=== PATIENT | female | born 1995 | race Two or more races ===

== ENCOUNTER 2020-05-07 23:29 | Inpatient (IN) | payer MEDICAID ==
[2020-05-07] MEDS ORDERED: Lidocaine 1% 50 ML MDV ONE (23:57)
[2020-05-07] MEDS ORDERED: Naloxone 0.4 MG/ML SDV ONE (23:57)
[2020-05-07] MEDS ORDERED: Oxytocin 10 Units/1 ML SDV ONE (23:57)
[2020-05-08] MEDS ORDERED: Oxytocin 10 Units/1 ML SDV ONE (00:08)
[2020-05-08] MEDS ORDERED: Misoprostol 200 MCG Tab ONE (00:12)
[2020-05-08] MEDS ORDERED: Methylergonovine 0.2 MG/1 ML Amp ONE (00:12)
[2020-05-08] MEDS ORDERED: Carboprost Tromethamine 250 MCG/1 ML Amp ONE (00:12)
[2020-05-08] MEDS ORDERED: Sodium Chloride 0.9% 10 ML Syringe FLUSH PRN (00:25)
[2020-05-08] MEDS ORDERED: Docusate Sodium 100 MG Cap PO PRN (00:28)
[2020-05-08] MEDS ORDERED: Acetaminophen 325 MG Tab, 50 Tab Bulk Bottle PO PRN (00:28)
[2020-05-08] MEDS ORDERED: Ibuprofen 200 MG Tab, 24 Tab Bulk Bottle PO PRN (00:28)
[2020-05-08] MEDS ORDERED: Lanolin 100% Cream 40 GM Tube TOP ONE (00:28)
[2020-05-08] MEDS ORDERED: Benzocaine 20% Top Spray 56 GM Bottle TOP ONE (00:28)
[2020-05-08] MEDS ORDERED: Witch Hazel Medicated Pads 100/Jar TOP ONE (00:28)
--- NOTE | 2020-05-08 00:55 | PCM.LDHP ---
L&D History of Present Illness - General Date of Service: 05/07/20 Admit Problem/Dx: Patient Status Order with Admit Dx/Problem 05/08/20 00:25 Patient Status [ADT] Routine 05/08/20 00:31 Patient Status [ADT] Routine Admission Diagnosis/Problem Admission Diagnosis/Problem Source of Information: Patient History Limitations: Reports: No Limitations - Related Data Allergies/Adverse Reactions: Allergies Allergy/AdvReac Type Severity Reaction Status Date / Time No Known Allergies Allergy Verified 01/20/20 22:13 Home Medications: Home Meds Pnv No.95/Ferrous Fum/Folic AC [ Tablet] 1 each PO DAILY 01/20/20 [History] Past Medical History - Past Health History Medical/Surgical History: Denies 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 History: Social & Family History - Family History Family Medical History: Noncontributory H&P Review of Systems - Review of Systems: Review Of Systems: See Below General: Reports: No Symptoms HEENT: Reports: No Symptoms Pulmonary: Reports: No Symptoms Cardiovascular: Reports: No Symptoms Gastrointestinal: Reports: No Symptoms Genitourinary: Reports: No Symptoms Musculoskeletal: Reports: No Symptoms Skin: Reports: No Symptoms Psychiatric: Reports: No Symptoms Neurological: Reports: No Symptoms Hematologic/Lymphatic: Reports: No Symptoms Immunologic: Reports: No Symptoms L&D Exam - Exam Exam: See Below - OB Specific Contraction Intensity: Strong Movement: Active Heart Tones: Present Heart Rate (FHR) Variability: Moderate (6-25 bmp) Presentation: Vertex - Iqbal Score Iqbal Score Cervix Position: Anterior Iqbal Score Consistency: Soft Iqbal Score Effacement: >80% Iqbal Score Dilation: > 5 cm Iqbal Score 's Station: -1 ,0 Iqbal Score Total: 12 - Exam General: Alert, Oriented, Cooperative HEENT: PERRLA, Conjunctiva Clear, EACs Clear, EOMI, Hearing Intact, Mucosa Moist & [place], Nares Patent, Normal Nasal Septum, Posterior Pharynx Clear, TMs Clear Neck: Supple, Trachea Midline Lungs: Clear to Auscultation, Normal Respiratory Effort Cardiovascular: Regular Rate, Regular Rhythm GI/Abdominal Exam: Normal Bowel Sounds, Soft, Non-Tender, No Organomegaly, No Distention, No Abnormal Bruit, No Mass, Pelvis Stable Rectal Exam: Normal Exam, Normal Rectal Tone Genitourinary: Normal external exam, Normal bimanual exam, Normal speculum exam Back Exam: Normal Inspection, Full Range of Motion Extremities: Normal Inspection, Normal Range of Motion, Non-Tender, No Pedal Edema, Normal Capillary Refill Skin: Warm, Dry, Intact Neurological: Cranial Nerves Intact, Reflexes Equal Bilateral Psychiatric: Alert, Normal Affect, Normal Mood - Patient Data Lab Results Last 24 hrs: Laboratory Results - last 24 hr 05/08/20 Range/Units 00:25 WBC 15.5 H (4.5-11.0) K/uL RBC 4.14 (3.30-5.50) M/uL Hgb 12.0 (12.0-15.0) g/dL Hct 35.5 L (36.0-48.0) % MCV 86 (80-98) fL MCH 29 (27-31) pg MCHC 34 (32-36) % Plt Count 217 (150-400) K/uL Neut % (Auto) 81 H (36-66) % Lymph % (Auto) 11 L (24-44) % [place] % (Auto) 7 H (2-6) % Eos % (Auto) 0 L (2-4) % Baso % (Auto) 0 (0-1) % Result Diagrams: 05/08/20 00:25 - Problem List (1) SNOMED Code(s): 77224884 ICD Code: Z34.90 - ENCNTR FOR SUPRVSN OF NORMAL , UNSP, UNSP TRIMESTER Status: Acute Current Visit: Yes Qualifiers: Weeks of gestation: 39 weeks Qualified Code(s): Z3A.39 - 39 weeks gestation of (2) Labor established SNOMED Code(s): 38330643 ICD Code: QGV6819 - Status: Acute Current Visit: Yes Problem List Initiated/Reviewed/Updated: Yes Orders Last 24hrs: Active Orders 24 hr Category Date Time Status Patient Status [ADT] Routine ADT 05/08/20 00:25 Active Patient Status [ADT] Routine ADT 05/08/20 00:31 Active Ambulate [RC] PER UNIT ROUTINE Care 05/08/20 00:25 Active Communication Order [RC] ASDIRECTED Care 05/08/20 00:25 Active Heart Tones [RC] PER UNIT ROUTINE Care 05/08/20 00:25 Active Non Stress Test [RC] Click to Edit Care 05/08/20 00:25 Active May Shower [RC] ASDIRECTED Care 05/08/20 00:25 Active Notify Provider Vital Signs [RC] PRN Care 05/09/20 23:40 Active Notify Provider [RC] PRN Care 05/08/20 00:25 Active Up ad Becky [RC] ASDIRECTED Care 05/08/20 00:25 Active VTE/DVT Education [RC] Click to Edit Care 05/08/20 00:26 Active Vital Signs [RC] PER UNIT ROUTINE Care 05/08/20 00:25 Active Vital Signs [RC] PFP Care 05/08/20 00:31 Active CBC WITH AUTO DIFF [HEME] Routine Lab 05/09/20 06:00 Ordered DRUG SCREEN, URINE [URCHEM] Routine Lab 05/08/20 00:25 Ordered UA W/MICROSCOPIC [URIN] Routine Lab 05/08/20 00:25 Ordered Acetaminophen [Tylenol Bulk Bottle] Med 05/08/20 00:28 Ordered See Dose Instructions PO Q4H PRN Benzocaine [Xvkc-O-Bihzazu 20% Treichlers] Med 05/08/20 00:28 Once See Dose Instructions TOP ONETIME ONE Docusate Sodium [Colace] Med 05/08/20 00:28 Ordered 100 mg PO BID PRN Ibuprofen [Motrin Bulk Bottle] Med 05/08/20 00:28 Ordered 600 mg PO Q6H PRN Lanolin [Lansinoh HPA] Med 05/08/20 00:28 Once 1 gm TOP ONETIME ONE Vit with Ca/FA/Iron [ Plus Iron] Med 05/08/20 09:00 Ordered 1 each PO DAILY Sodium Chloride 0.9% [Saline Flush] Med 05/08/20 00:25 Ordered 10 ml FLUSH ASDIRECTED PRN witch Nikkie [Tucks] Med 05/08/20 00:28 Once 1 pad TOP ONETIME ONE Assess Lochia [WOMSER] Per Unit Routine Oth 05/08/20 00:28 Ordered Assess Uterine Involution [WOMSER] Per Unit Routine Oth 05/08/20 00:28 Ordered DVT/VTE Prophylaxis Reflex [OM.PC] Routine Oth 05/08/20 00:25 Ordered Perineal Care [OM.PC] Per Unit Routine Oth 10/23/20 00:32 Ordered Saline Lock Insert [OM.PC] Routine Oth 05/08/20 00:25 Ordered Resuscitation Status Routine Resus Stat 05/08/20 00:25 Ordered Medication Orders Acetaminophen (Tylenol Bulk Bottle) 0 mg PO Q4H PRN PRN Reason: Pain Benzocaine (Usgd-P-Exeqzkn 20% Treichlers) 0 gm TOP ONETIME ONE Stop: 05/08/20 00:29 Docusate Sodium (Colace) 100 mg PO BID PRN PRN Reason: Constipation Emollient Ointment (Lansinoh Hpa) 1 gm TOP ONETIME ONE Stop: 05/08/20 00:29 Ibuprofen (Motrin Bulk Bottle) 600 mg PO Q6H PRN PRN Reason: Pain Prenat Multivit/[place]/Iron/Folic Ac ( Plus Iron) 1 each PO DAILY MANDY Sodium Chloride (Saline Flush) 10 ml FLUSH ASDIRECTED PRN PRN Reason: Keep Vein Open Witch Nikkie (Tucks) 1 pad TOP ONETIME ONE Stop: 05/08/20 00:29 Assessment/Plan Comment:: 05/07/2020 25 yo came in in active labor on 05/07/2020 at 2330. She was at that time 39 3/7 gestational weeks. She had originally been getting care here then had briefly moved to [place] and was receiving routine care. She states that when labor started and they started driving to [place] she was concerned she would not make it with weather related bad roads so she came here. SVE on arrival-/0 with a bulgy bag FHTs category one Patient felt pushy Plan- Continue to monitor labor Continue to monitor FHTs Admit per routine Plan and anticipate a vaginal delivery
--- NOTE | 2020-05-08 01:01 | PCM.DEL ---
L & D Note - General Info Date of Service: 05/08/20 Mother's Due Date: 05/11/20 - Delivery Note Labor: Spontaneous Delivery Outcome: Livebirth Infant Delivery Method: Spontaneous Vaginal Delivery-Single Infant Delivery Mode: Spontaneous Presentation: Vertex Nuchal Cord: None Anesthesia Type: None Amniotic Fluid Description: Meconium Stained (particulate) Episiotomy Type: None Laceration: None Placenta: Spontaneous, Clot (large) Cord: 3 Vessels Estimated Blood Loss: 350 Resuscitation Needed: No [place]: Bulb Syringe, Stimulated, Warmed, [place] Used Score 1 min: 8 Score 5 min: 9 Second Stage Interventions: Reports: Second Nurse Assessed Progress of Descent, Second Nurse Reviewed Contraction Pattern, Second Nurse Reviewed Heart Tones, Encouragement Given, Pushing Effectively, Pushing Involuntarily, Pushing, McRobert's Position Delivery Comments (Free Text/Narrative):: 05/08/2020 25 yo delivered a viable female infant spontaneously at 39 4/7 gestational weeks at 0003 on 05/08/2020 in ESTEVAN position over an intact perineum. Patient had came in and delivered precipitously shortly after provider arrived. AROM had been done at 2355 with particulate meconium noted, patient was able to push effectively and delivered with no complications. was placed on mothers abdomen and began to cry vigorously. Delayed cord clamping was done for approximately 90 seconds before cord was clamped and cut by father of infant. was then placed skin to skin with mother. APGARS-8/9, weight 7lbs 10oz, length-20 inches. Placenta had a large clot that came with a large flow of bleeding, IV site had been lost so IM Pitocin was initiated and then placenta came spontaneously with another large clot. Placenta came out slightly vilchis side but intact. EBL-350, three vessel cord. No lacerations noted of perineum, labia, vagina, cervix, or rectum. Mother and both stable in labor and delivery room at this time. Stages of labor- [id number] - General Info Date of Service: 05/08/20 Functional Status: Reports: Pain Controlled - Review of Systems General: Reports: No Symptoms HEENT: Reports: No Symptoms Pulmonary: Reports: No Symptoms Cardiovascular: Reports: No Symptoms Gastrointestinal: Reports: No Symptoms Genitourinary: Reports: No Symptoms Musculoskeletal: Reports: No Symptoms Skin: Reports: No Symptoms Neurological: Reports: No Symptoms Psychiatric: Reports: No Symptoms - Patient Data Lab Results Last 24 Hours: Laboratory Results - last 24 hr 05/08/20 Range/Units 00:25 WBC 15.5 H (4.5-11.0) K/uL RBC 4.14 (3.30-5.50) M/uL Hgb 12.0 (12.0-15.0) g/dL Hct 35.5 L (36.0-48.0) % MCV 86 (80-98) fL MCH 29 (27-31) pg MCHC 34 (32-36) % Plt Count 217 (150-400) K/uL Neut % (Auto) 81 H (36-66) % Lymph % (Auto) 11 L (24-44) % [place] % (Auto) 7 H (2-6) % Eos % (Auto) 0 L (2-4) % Baso % (Auto) 0 (0-1) % Med Orders - Current: Current Medications Acetaminophen (Tylenol Bulk Bottle) 0 mg PO Q4H PRN PRN Reason: Pain Benzocaine (Sbcx-M-Aqjaiph 20% [place]) 0 gm TOP ONETIME ONE Stop: 05/08/20 00:29 Docusate Sodium (Colace) 100 mg PO BID PRN PRN Reason: Constipation Emollient Ointment (Lansinoh Hpa) 1 gm TOP ONETIME ONE Stop: 05/08/20 00:29 Ibuprofen (Motrin Bulk Bottle) 600 mg PO Q6H PRN PRN Reason: Pain Prenat Multivit/[place]/Iron/Folic Ac ( Plus Iron) 1 each PO DAILY MANDY Sodium Chloride (Saline Flush) 10 ml FLUSH ASDIRECTED PRN PRN Reason: Keep Vein Open Witch Rita (Tucks) 1 pad TOP ONETIME ONE Stop: 05/08/20 00:29 Discontinued Medications Carboprost Tromethamine (Hemabate Ds) Confirm Administered Dose 250 mcg .ROUTE .STK-MED ONE Stop: 05/08/20 00:13 Oxytocin/Sodium Chloride (Pitocin In Ns 20 Units/1,000 Ml) Confirm Administered Dose 20 unit in 1,000 mls @ as directed .ROUTE .STK-MED ONE Stop: 05/07/20 23:41 Oxytocin/Sodium Chloride (Pitocin In Ns 20 Units/1,000 Ml) Confirm Administered Dose 20 unit in 1,000 mls @ as directed .ROUTE .STK-MED ONE Stop: 05/07/20 23:58 Lidocaine HCl (Xylocaine 1%) Confirm Administered Dose 100 ml .ROUTE .STK-MED ONE Stop: 05/07/20 23:58 Methylergonovine Maleate (Methergine) Confirm Administered Dose 0.2 mg .ROUTE .STK-MED ONE Stop: 05/08/20 00:13 Misoprostol (Cytotec) Confirm Administered Dose 800 mcg .ROUTE .STK-MED ONE Stop: 05/08/20 00:13 Naloxone HCl (Narcan) Confirm Administered Dose 0.4 mg .ROUTE .STK-MED ONE Stop: 05/07/20 23:58 Oxytocin (Pitocin) Confirm Administered Dose 10 unit .ROUTE .STK-MED ONE Stop: 05/07/20 23:58 Oxytocin (Pitocin) Confirm Administered Dose 10 unit .ROUTE .STK-MED ONE Stop: 05/08/20 00:09 - Exam General: Alert, Oriented, Cooperative HEENT: Pupils Equal, Pupils Reactive, EOMI, Mucous Membr. Moist/[place] Neck: Supple Lungs: Clear to Auscultation, Normal Respiratory Effort Cardiovascular: Regular Rate, Regular Rhythm GI/Abdominal Exam: Normal Bowel Sounds, Soft, Non-Tender, No Organomegaly, No Distention, No Abnormal Bruit, No Mass, Pelvis Stable (Female) Exam: Normal External Exam, Normal Speculum Exam, Normal Bimanual Exam Back Exam: Normal Inspection, Full Range of Motion Extremities: Normal Inspection, Normal Range of Motion, Non-Tender, No Pedal Edema, Normal Capillary Refill Skin: Warm, Dry, Intact Wound/Incisions: Healing Well Neurological: No New Focal Deficit Psy/Mental Status: Alert, Normal Affect, Normal Mood - Problem List & Annotations (1) SNOMED Code(s): 60506562 Code(s): Z34.90 - ENCNTR FOR SUPRVSN OF NORMAL , UNSP, UNSP TRIMESTER Status: Acute Current Visit: Yes Qualifiers: Weeks of gestation: 39 weeks Qualified Code(s): Z3A.39 - 39 weeks gestation of (2) Labor established SNOMED Code(s): 37234611 Code(s): STJ4823 - Status: Acute Current Visit: Yes (3) Normal vaginal delivery SNOMED Code(s): 99042568, 350502827 Code(s): O80 - ENCOUNTER FOR FULL-TERM UNCOMPLICATED DELIVERY Status: Acute Current Visit: Yes (4) Precipitate labor, with delivery SNOMED Code(s): 849589915, 248017105 Code(s): O62.3 - PRECIPITATE LABOR Status: Acute Current Visit: Yes (5) Meconium in amniotic fluid SNOMED Code(s): 266399076 Code(s): P96.83 - MECONIUM STAINING Status: Acute Current Visit: Yes - Problem List Review Problem List Initiated/Reviewed/Updated: Yes - My Orders Last 24 Hours: My Active Orders 05/08/20 00:25 Patient Status [ADT] Routine Ambulate [RC] PER UNIT ROUTINE Communication Order [RC] ASDIRECTED Heart Tones [RC] PER UNIT ROUTINE Non Stress Test [RC] Click to Edit May Shower [RC] ASDIRECTED Notify Provider [RC] PRN Up ad Becky [RC] ASDIRECTED Vital Signs [RC] PER UNIT ROUTINE DRUG SCREEN, URINE [URCHEM] Routine UA W/MICROSCOPIC [URIN] Routine Sodium Chloride 0.9% [Saline Flush] 10 ml FLUSH ASDIRECTED PRN DVT/VTE Prophylaxis Reflex [OM.PC] Routine Saline Lock Insert [OM.PC] Routine Resuscitation Status Routine 05/08/20 00:26 VTE/DVT Education [RC] Click to Edit 05/08/20 00:28 Acetaminophen [Tylenol Bulk Bottle] See Dose Instructions PO Q4H PRN Benzocaine [Xbof-W-Ofvmckf 20% [place]] See Dose Instructions TOP ONETIME ONE Docusate Sodium [Colace] 100 mg PO BID PRN Ibuprofen [Motrin Bulk Bottle] 600 mg PO Q6H PRN Lanolin [Lansinoh HPA] 1 gm TOP ONETIME ONE witch Rita [Tucks] 1 pad TOP ONETIME ONE Assess Lochia [WOMSER] Per Unit Routine Assess Uterine Involution [WOMSER] Per Unit Routine 05/08/20 00:31 Patient Status [ADT] Routine Vital Signs [RC] PFP 05/08/20 00:32 Perineal Care [OM.PC] Per Unit Routine 05/08/20 09:00 Vit with Ca/FA/Iron [ Plus Iron] 1 each PO DAILY 05/09/20 06:00 CBC WITH AUTO DIFF [HEME] Routine 05/09/20 23:40 Notify Provider Vital Signs [RC] PRN - Assessment Assessment:: 05/08/2020 @ 39 4/7 gestational weeks without complications Precipitous delivery Perineum intact EBL-350 - Plan Plan:: 05/07/2020 25 yo came in in active labor on 05/07/2020 at 2330. She was at that time 39 3/7 gestational weeks. She had originally been getting care here then had briefly moved to [place] and was receiving routine care. She states that when labor started and they started driving to [place] she was concerned she would not make it with weather related bad roads so she came here. SVE on arrival-/ with a bulgy bag FHTs category one Patient felt pushy Plan- Continue to monitor labor Continue to monitor FHTs Admit per routine Plan and anticipate a vaginal delivery 05/08/2020 Routine cares Encourage and support - to see Plan a 24-48 hour discharge
[2020-05-08] MEDS ORDERED: Oxytocin 10 Units/1 ML SDV IM ONE (01:11)
[2020-05-08] MEDS ORDERED: Methylergonovine 0.2 MG/1 ML Amp IM PRN (01:12)
[2020-05-08] MEDS ORDERED: FLU VACC QS2020-21(6MOS UP)/PF 60 MCG/0.5 ML SYRINGE IM ONE (05:00)
[2020-05-08] MEDS: Prenatal Multivitamin with Calcium/Folic Acid/Iron Tab PO SCH (09:03)
--- NOTE | 2020-05-09 08:45 | PCM.PNPP ---
- General Info Date of Service: 05/09/20 Functional Status: Reports: Pain Controlled - Review of Systems General: Reports: No Symptoms HEENT: Reports: No Symptoms Pulmonary: Reports: No Symptoms Cardiovascular: Reports: No Symptoms Gastrointestinal: Reports: No Symptoms Genitourinary: Reports: No Symptoms Musculoskeletal: Reports: No Symptoms Skin: Reports: No Symptoms Neurological: Reports: No Symptoms Psychiatric: Reports: No Symptoms - General Info Date of Service: 05/09/20 - Patient Data Vital Signs - Most Recent: Last Vital Signs Temp 36.2 C 05/08/20 19:00 Pulse 88 05/08/20 19:00 Resp 16 05/08/20 19:00 BP 119/67 05/08/20 19:00 Pulse Ox 99 05/08/20 19:00 Weight - Most Recent: 77.111 kg I&O - Last 24 Hours: Intake & Output 05/08/20 05/09/20 05/09/20 22:59 06:59 14:59 Intake Total 1700 Balance 1700 Lab Results - Last 24 Hours: Laboratory Results - last 24 hr 05/08/20 05/09/20 Range/Units 07:00 05:35 WBC 13.7 H (4.5-11.0) K/uL RBC 3.41 (3.30-5.50) M/uL Hgb 9.5 L D (12.0-15.0) g/dL Hct 29.7 L (36.0-48.0) % MCV 87 (80-98) fL MCH 28 (27-31) pg MCHC 32 (32-36) % Plt Count 194 (150-400) K/uL Neut % (Auto) 71 H (36-66) % Lymph % (Auto) 21 L (24-44) % [place] % (Auto) 8 H (2-6) % Eos % (Auto) 1 L (2-4) % Baso % (Auto) 0 (0-1) % Antibody Identification Cancelled Med Orders - Current: Current Medications Acetaminophen (Tylenol Bulk Bottle) 0 mg PO Q4H PRN PRN Reason: Pain Last Admin: 05/08/20 02:27 Dose: 325 gram Documented by: Docusate Sodium (Colace) 100 mg PO BID PRN PRN Reason: Constipation Ibuprofen (Motrin Bulk Bottle) 600 mg PO Q6H PRN PRN Reason: Pain Last Admin: 05/08/20 02:28 Dose: 600 mg Documented by: Influenza Virus Vaccine (Fluzone Quad Syringe) 60 mcg IM ONETIME ONE Stop: 05/09/20 10:01 Methylergonovine Maleate (Methergine) 0.2 mg IM Q4H PRN PRN Reason: Bleeding Last Admin: 05/08/20 00:12 Dose: 0.2 mg Documented by: Prenat Multivit/Restrictive Preparation Operator/Iron/Folic Ac ( Plus Iron) 1 each PO DAILY MANDY Last Admin: 05/08/20 09:03 Dose: 1 each Documented by: Sodium Chloride (Saline Flush) 10 ml FLUSH ASDIRECTED PRN PRN Reason: Keep Vein Open Discontinued Medications Benzocaine (Vexf-G-Ghhjrgc 20% [place]) 0 gm TOP ONETIME ONE Stop: 05/08/20 00:29 Last Admin: 05/08/20 02:28 Dose: 1 applic Documented by: Carboprost Tromethamine (Hemabate Ds) Confirm Administered Dose 250 mcg .ROUTE .STK-MED ONE Stop: 05/08/20 00:13 Last Admin: 05/08/20 01:28 Dose: Not Given Documented by: Emollient Ointment (Lansinoh Hpa) 1 gm TOP ONETIME ONE Stop: 05/08/20 00:29 Last Admin: 05/08/20 02:27 Dose: 1 applic Documented by: Oxytocin/Sodium Chloride (Pitocin In Ns 20 Units/1,000 Ml) Confirm Administered Dose 20 unit in 1,000 mls @ as directed .ROUTE .STK-MED ONE Stop: 05/07/20 23:41 Last Admin: 05/08/20 01:26 Dose: Not Given Documented by: Oxytocin/Sodium Chloride (Pitocin In Ns 20 Units/1,000 Ml) Confirm Administered Dose 20 unit in 1,000 mls @ as directed .ROUTE .STK-MED ONE Stop: 05/07/20 23:58 Last Admin: 05/08/20 01:27 Dose: Not Given Documented by: Influenza Virus Vaccine (Fluzone Quad Syringe) 60 mcg IM .ONCE ONE Stop: 05/08/20 05:01 Lidocaine HCl (Xylocaine 1%) Confirm Administered Dose 100 ml .ROUTE .STK-MED ONE Stop: 05/07/20 23:58 Last Admin: 05/08/20 01:27 Dose: Not Given Documented by: Methylergonovine Maleate (Methergine) Confirm Administered Dose 0.2 mg .ROUTE .STK-MED ONE Stop: 05/08/20 00:13 Last Admin: 05/08/20 01:28 Dose: Not Given Documented by: Misoprostol (Cytotec) Confirm Administered Dose 800 mcg .ROUTE .STK-MED ONE Stop: 05/08/20 00:13 Last Admin: 05/08/20 01:28 Dose: Not Given Documented by: Naloxone HCl (Narcan) Confirm Administered Dose 0.4 mg .ROUTE .STK-MED ONE Stop: 05/07/20 23:58 Last Admin: 05/08/20 01:27 Dose: Not Given Documented by: Oxytocin (Pitocin) Confirm Administered Dose 10 unit .ROUTE .STK-MED ONE Stop: 05/07/20 23:58 Last Admin: 05/08/20 01:27 Dose: Not Given Documented by: Oxytocin (Pitocin) Confirm Administered Dose 10 unit .ROUTE .STK-MED ONE Stop: 05/08/20 00:09 Last Admin: 05/08/20 01:27 Dose: Not Given Documented by: Oxytocin (Pitocin) 10 unit IM ONETIME ONE Stop: 05/08/20 01:12 Last Admin: 05/08/20 00:08 Dose: 10 unit Documented by: Milo [place] (Ludin) 1 pad TOP ONETIME ONE Stop: 05/08/20 00:29 Last Admin: 05/08/20 02:28 Dose: 1 applic Documented by: - Infant Interaction Infant Disposition, : [place] in Room with Family Interaction: Holding Infant Feeding: Breastfed ; Nursed Well Support Person: Significant Other - Recovery Exam Fundal Tone: Firm Fundal Level: At Umbilicus Fundal Placement: Midline Lochia Amount: Small Lochia Color: [place]ra/Red Perineum Description: Intact, Minimal Bruising/Swelling Episiotomy/Laceration: None Bladder Status: Voiding Urinary Elimination: Voided - Exam General: Alert, Oriented HEENT: Pupils Equal Neck: Supple Lungs: Clear to Auscultation, Normal Respiratory Effort Cardiovascular: Regular Rate, Regular Rhythm GI/Abdominal Exam: Normal Bowel Sounds, Soft, Non-Tender, No Mass, Pelvis Stable Extremities: Normal Inspection, Normal Range of Motion, Non-Tender, No Pedal Edema, Normal Capillary Refill Skin: Warm, Dry, Intact Neurological: No New Focal Deficit Psy/Mental Status: Alert, Normal Affect, Normal Mood - Problem List & Annotations (1) Labor established SNOMED Code(s): 23096522 Code(s): DUT4056 - Status: Acute Current Visit: Yes (2) Meconium in amniotic fluid SNOMED Code(s): 253248904 Code(s): P96.83 - MECONIUM STAINING Status: Acute Current Visit: Yes (3) Normal vaginal delivery SNOMED Code(s): 77536292, 810863269 Code(s): O80 - ENCOUNTER FOR FULL-TERM UNCOMPLICATED DELIVERY Status: Acute Current Visit: Yes (4) Precipitate labor, with delivery SNOMED Code(s): 302659649, 240007303 Code(s): O62.3 - PRECIPITATE LABOR Status: Acute Current Visit: Yes (5) SNOMED Code(s): 62650163 Code(s): Z34.90 - ENCNTR FOR SUPRVSN OF NORMAL , UNSP, UNSP TRIMESTER Status: Acute Current Visit: Yes Qualifiers: Weeks of gestation: 39 weeks Qualified Code(s): Z3A.39 - 39 weeks gestation of (6) Positive urine drug screen SNOMED Code(s): 257403983, 027309963 Code(s): R82.5 - ELEVATED URINE LEVELS OF DRUG/MEDS/BIOL SUBST Status: Acute Current Visit: No - Problem List Review Problem List Initiated/Reviewed/Updated: Yes - My Orders Last 24 Hours: My Active Orders 05/08/20 18:14 Communication Order [RC] ROUTINE - Assessment Assessment:: 05/08/2020 @ 39 4/7 gestational weeks without complications Precipitous delivery Perineum intact EBL-350 05/09/20 PP without complications going very well FF and bleeding light Hgb 9.5 - Plan Plan:: 05/07/2020 25 yo came in in active labor on 05/07/2020 at 2330. She was at that time 39 3/7 gestational weeks. She had originally been getting care here then had briefly moved to [place] and was receiving routine care. She states that when labor started and they started driving to [place] she was concerned she would not make it with weather related bad roads so she came here. NEHEMIASE on arrival- with a bulgy bag FHTs category one Patient felt pushy Plan- Continue to monitor labor Continue to monitor FHTs Admit per routine Plan and anticipate a vaginal delivery 05/08/2020 Routine cares Encourage and support - to see Plan a 24-48 hour discharge 05/09/20 Routine pp cares Continue to support Needs Rhogam before discharge Discharge home today 6 week pp check
[2020-05-09] MEDS ORDERED: FLU VACC QS2020-21(6MOS UP)/PF 60 MCG/0.5 ML SYRINGE IM ONE ×3 (09:00→13:00)
[2020-05-09] MEDS: Prenatal Multivitamin with Calcium/Folic Acid/Iron Tab PO SCH (09:57)
== END 2020-05-09 14:45 | disposition home or self-care (01) | DRG 807 ==
LOC: JP.OBCHECK 23:29 → JP.OB 23:50 → OBSVTOIN 05-08 00:03 → JP.MS 05-08 07:21
PROVIDERS: ADMIT Advanced Practice Midwife; ATTEND Advanced Practice Midwife
PROC: 10E0XZZ Delivery of Products of Conception, External Approach (ICD-10-PCS; principal; 2020-05-08)
PROC: 10907ZC Drainage of Amniotic Fluid, Therapeutic from Products of Conception, Via Natural or Artificial Opening (ICD-10-PCS; 2020-05-08)
DX: O62.3 Precipitate labor (principal); Z37.0 Single live birth; O77.0 Labor and delivery complicated by meconium in amniotic fluid; Z3A.39 39 weeks gestation of pregnancy; R82.5 Elevated urine levels of drugs, medicaments and biological substances
CPT/HCPCS: 36415; 80305-QW; 81001; 85025; 85460; 86850; 86900; 86901; 90686; A9270-GY; J2210; J2590; J2790